=== PATIENT | male | born 1995 | race African-American/Black ===

== ENCOUNTER 2019-01-27 09:46 | Emergency (ER) | payer SELFPAY ==
[~2019-01-27] VITALS: Ht 188 cm; Wt 102.3 kg
[2019-01-27 09:56] VITALS: Ht 188 cm; Wt 102.3 kg
[2019-01-27] MEDS ORDERED: VIBRAMYCIN 100100 MG PO (11:35)
[2019-01-27] MEDS ORDERED: ULTRAM50 MG PO (11:35)
[2019-01-27 11:56] VITALS: BP 120/80
== END 2019-01-27 11:56 | disposition home or self-care (01) ==
LOC: D.ER 09:46
DX: L72.0 Epidermal cyst (principal)

== ENCOUNTER 2019-02-11 18:08 | Emergency (ER) | payer SELFPAY ==
[~2019-02-11] VITALS: Ht 188 cm; Wt 102.3 kg
[~2019-02-11 18:08] MED LIST: ULTRAM50 MG PO; VIBRAMYCIN 100100 MG PO
[2019-02-11 18:24] VITALS: Ht 188 cm; Wt 102.3 kg
[2019-02-11] MEDS ORDERED: ULTRAM50 MG PO (19:40)
[2019-02-11 19:44] VITALS: BP 111/63
== END 2019-02-11 19:45 | disposition home or self-care (01) ==
LOC: D.ER 18:08
DX: N50.82 Scrotal pain (principal)